=== PATIENT | female | born 1960 | race American Indian/Alaskan Native ===

== ENCOUNTER 2019-09-18 10:39 | Outpatient (CLI) | payer MEDICAID | END 2019-09-18 10:40 | disposition home or self-care (01) | LOC: CARD 10:39 | DX: I51.7 Cardiomegaly (principal); G89.4 Chronic pain syndrome; Z79.891 Long term (current) use of opiate analgesic | CPT/HCPCS: 93005; 93010 ==

== ENCOUNTER 2019-09-29 10:51 | Emergency (ER) | payer MEDICAID ==
--- NOTE | 2019-09-29 11:11 | Event Note ---
ED Screening Note Date of service: 09/29/19 Time: 11:08 ED Screening Note: 59 y/o female comes in for back pain s/p Fall at [facility] this morning. This initial assessment/diagnostic orders/clinical plan/treatment(s) is/are subject to change based on patients health status, clinical progression and re- assessment by fellow clinical providers in the ED. Further treatment and workup at subsequent clinical providers discretion. Patient/guardian urged not to elope from the ED as their condition may be serious if not clinically assessed and managed. Initial orders include:
--- NOTE | 2019-09-29 11:51 | XRay Report ---
THORACIC SPINE, 2 VIEWS INDICATION / CLINICAL INFORMATION: MAIN: fall on back now having pain in her back TODAY. COMPARISON: None available. FINDINGS: Moderate spondylitic changes are present throughout the thoracic spine in a pattern consistent with D KEI. I do not see any suggestion for fracture or traumatic malalignment. IMPRESSION: No evidence for fracture or traumatic malalignment. Signer Name: Maci Carlos MD Signed: 09/29/2019 11:47 AM Workstation Name: [id number]
--- NOTE | 2019-09-29 11:53 | XRay Report ---
LUMBAR SPINE, 3 VIEWS INDICATION / CLINICAL INFORMATION: MAIN: fall on back now having pain TODAY. COMPARISON: None available. FINDINGS: There is mild multilevel degenerative disc disease present. There is minimal anterolisthesis of L4 on L5 which may be degenerative in etiology. I do not see any evidence for fracture. Moderate facet degenerative changes noted throughout the mid and lower lumbar spine. IMPRESSION: 1. No evidence for fracture. 2. Trace anterolisthesis of L4 on L5. This may be degenerative in etiology. 3. Mild multilevel degenerative disc disease with associated spondylitic change. Signer Name: Maci Carlos MD Signed: 09/29/2019 11:49 AM Workstation Name: [email or web address]
--- NOTE | 2019-09-29 12:48 | Emergency Department Report ---
<EKATERINA FERNANDEZMatteo Dale - Last Filed: 09/29/19 12:43> ED Fall HPI - General Chief Complaint: Fall Stated Complaint: FALL INJURY Time Seen by Provider: 09/29/19 11:07 Source: patient, EMS Mode of arrival: Wheelchair - History of Present Illness Initial Comments: 59 y/o female comes in for back pain s/p Fall at [facility] this morning. Complaint: fall -: This morning Fall From: standing When Fall Occurred: just prior to arrival Fall Witnessed: no Place Fall Occurred: other ([facility]) Loss of Consciousness: none Prolonged Down Time?: no Symptoms Prior to Fall: none Location: back Location - Extremities: Right: Arm (wrist) Severity scale (0 -10): 9 Quality: aching Context: tripped/slipped - Related Data Home Medications Medication Instructions Recorded Confirmed Last Taken Ibuprofen [Advil] 200 mg PO Q6H PRN 11/04/14 11/04/14 Unknown Ibuprofen [Motrin] 800 mg PO TID PRN 11/04/14 11/04/14 11/04/14 amLODIPine [Norvasc] 10 mg PO DAILY 11/04/14 11/04/14 11/03/14 cloNIDine [Catapres] 0.1 mg PO BID 11/04/14 11/04/14 11/04/14 hydroCHLOROthiazide [Hctz] 25 mg PO QDAY 11/04/14 11/04/14 11/03/14 Previous Rx's Medication Instructions Recorded Last Taken Type Albuterol Sulfate [Ventolin HFA] 2 puff IH Q4H PRN #1 hfa.aer.ad 11/05/14 Unknown Rx HYDROcodone/APAP 10-325 [[place] 1 each PO Q8HR PRN #20 tablet 11/05/14 Unknown Rx 10-325 mg TAB] levoFLOXacin [Levaquin] 750 mg PO QDAY #7 tablet 11/05/14 Unknown Rx predniSONE [Deltasone] 40 mg PO QDAY #10 tab 11/05/14 Unknown Rx Allergies Allergy/AdvReac Type Severity Reaction Status Date / Time sulfamethoxazole Allergy Itching Verified 11/04/14 17:30 [From Bactrim] trimethoprim [From Bactrim] Allergy Itching Verified 11/04/14 17:30 egg AdvReac Vomiting Unverified 11/06/15 08:09 ED Review of Systems Comment: All other systems reviewed and negative ED Past Medical Hx - Past Medical History Previous Medical History?: Yes Hx Hypertension: Yes Hx Diabetes: Yes (not on meds) Hx COPD: Yes Additional medical history: Right lung, O2 dependency - Surgical History Past Surgical History?: Yes Additional Surgical History: Right middle lobectomy - Social History Smoking Status: Never Smoker Substance Use Type: None - Medications Home Medications: Home Medications Medication Instructions Recorded Confirmed Last Taken Type Ibuprofen [Advil] 200 mg PO Q6H PRN 11/04/14 11/04/14 Unknown History Ibuprofen [Motrin] 800 mg PO TID PRN 11/04/14 11/04/14 11/04/14 History amLODIPine [Norvasc] 10 mg PO DAILY 11/04/14 11/04/14 11/03/14 History cloNIDine [Catapres] 0.1 mg PO BID 11/04/14 11/04/14 11/04/14 History hydroCHLOROthiazide [Hctz] 25 mg PO QDAY 11/04/14 11/04/14 11/03/14 History Albuterol Sulfate [Ventolin HFA] 2 puff IH Q4H PRN #1 hfa.aer.ad 11/05/14 Unknown Rx HYDROcodone/APAP 10-325 [[place] 1 each PO Q8HR PRN #20 tablet 11/05/14 Unknown Rx 10-325 mg TAB] levoFLOXacin [Levaquin] 750 mg PO QDAY #7 tablet 11/05/14 Unknown Rx predniSONE [Deltasone] 40 mg PO QDAY #10 tab 11/05/14 Unknown Rx ED Physical Exam - General Limitations: No Limitations General appearance: alert, in no apparent distress - Head Head exam: Present: atraumatic, normocephalic - Eye Eye exam: Present: normal appearance - ENT ENT exam: Present: mucous membranes moist - Neck Neck exam: Present: normal inspection, full ROM. Absent: tenderness - Back Exam Back exam: Present: full ROM, muscle spasm, paraspinal tenderness. Absent: vertebral tenderness - Neurological Exam Neurological exam: Present: alert, oriented X3, normal gait - Psychiatric Psychiatric exam: Present: normal affect, normal mood - Skin Skin exam: Present: warm, dry, intact, normal color. Absent: rash ED Medical Decision Making - Radiology Data Radiology results: report reviewed [address] [address] XRay Report Signed Patient: NIALL ARAGON MR# : [id number] : 1960 Acct:[id number] Age/Sex: 59 / F ADM Date: 09/29/19 Loc: ED Attending Dr: Ordering Physician: KARUNA FITZPATRICK Date of Service: 09/29/19 Procedure(s): XR spine thoracic 2V Accession Number(s): [id number] cc: KARUNA FITZPATRICK Fluoro Time In Minutes: THORACIC SPINE, 2 VIEWS INDICATION / CLINICAL INFORMATION: MAIN: fall on back now having pain in her back TODAY. COMPARISON: None available. FINDINGS: Moderate spondylitic changes are present throughout the thoracic spine in a pattern consistent with DISH. I do not see any suggestion for fracture or traumatic malalignment. IMPRESSION: No evidence for fracture or traumatic malalignment. Signer Name: Maci Carlos MD Signed: 09/29/2019 11:47 AM Workstation Name: [id number] Transcribed By: JR Dictated By: Maci Carlos MD Electronically Authenticated By: Maci Carlos MD Signed Date/Time: 09/29/19 1147 DD/ 1146 TD/TT: Referring Physician:PEPPER FERNANDEZPatient Name:NIALL ARAGONPatient ID:[id number] of :[id number]:FemaleAccession:[id number] Date:[id number] Status:Finalized Findings [address] [address] XRay Report Signed Patient: NIALL ARAGON MR# : [id number] : 1960 Acct:[id number] Age/Sex: 59 / F ADM Date: 09/29/19 Loc: ED Attending Dr: Ordering Physician: KARUNA FITZPATRICK Date of Service: 09/29/19 Procedure(s): XR spine lumbosacral 2-3V Accession Number(s): [id number] cc: KARUNA FITZPATRICK Fluoro Time In Minutes: LUMBAR SPINE, 3 VIEWS INDICATION / CLINICAL INFORMATION: MAIN: fall on back now having pain TODAY. COMPARISON: None available. FINDINGS: There is mild multilevel degenerative disc disease present. There is minimal anterolisthesis of L4 on L5 which may be degenerative in etiology. I do not see any evidence for fracture. Moderate facet degenerative changes noted throughout the mid and lower lumbar spine. IMPRESSION: 1. No evidence for fracture. 2. Trace anterolisthesis of L4 on L5. This may be degenerative in etiology. 3. Mild multilevel degenerative disc disease with associated spondylitic change. Signer Name: Maci Carlos MD Signed: 09/29/2019 11:49 AM Workstation Name: [id number] Transcribed By: JR Dictated By: Maci Carols MD Electronically Authenticated By: Maci Carlos MD Signed Date/Time: 09/29/19 1149 DD/ 1147 TD/TT: - Medical Decision Making 59 y/o female comes in for back pain s/p Fall at [facility] this morning. Xray are neg for any acute findings. Take OTC IB or Tylenol. F/U with PCP. ED Disposition Clinical Impression: Fall Qualifiers: Encounter type: initial encounter Qualified Code(s): W19.XXXA - Unspecified fall, initial encounter Disposition: TO HOME OR SELFCARE Is pt being admited?: No Does the pt Need Aspirin: No Condition: Stable Instructions: Fall Prevention for Older Adults (ED), Degenerative Disc Disease (ED) Additional Instructions: Take Ibuprofen or Tylenol for pain. Over the counter aspercream rub to back. F/U with your PCP. Referrals: ALFONZO MENDEZ MD [Primary Care Provider] - 3-5 Days <CARLOS GR P - Last Filed: 09/29/19 13:21> ED Review of Systems ROS: Stated complaint: FALL INJURY Other details as noted in HPI ED Course Vital Signs 09/29/19 09/29/19 11:05 13:07 Temperature 98.1 F Pulse Rate 107 H 99 H Respiratory 20 16 Rate Blood Pressure 182/98 Blood Pressure 179/99 [Left] O2 Sat by Pulse 98 97 Oximetry ED Medical Decision Making - Medical Decision Making Attestation: Available for consultation Critical care attestation.: If time is entered above; I have spent that time in minutes in the direct care of this critically ill patient, excluding procedure time. ED Disposition Is pt being admited?: No
[2019-09-29 13:07] VITALS: BP 179/99
== END 2019-09-29 13:07 | disposition home or self-care (01) ==
LOC: ED 10:51
DX: M54.9 Dorsalgia, unspecified (principal); I10 Essential (primary) hypertension; E11.9 Type 2 diabetes mellitus without complications; J44.9 Chronic obstructive pulmonary disease, unspecified; Z98.890 Other specified postprocedural states; Z79.1 Long term (current) use of non-steroidal anti-inflammatories (NSAID); Z79.899 Other long term (current) drug therapy; Z88.2 Allergy status to sulfonamides; Z91.012 Allergy to eggs; Z88.8 Allergy status to other drugs, medicaments and biological substances; W19.XXXA Unspecified fall, initial encounter; Y93.89 Activity, other specified; Y92.89 Other specified places as the place of occurrence of the external cause; Y99.8 Other external cause status
CPT/HCPCS: 72070; 72100